=== PATIENT | female | born 1990 ===

== ENCOUNTER 2021-01-03 13:06 | Day surgery (SDC) | payer OTHER ==
[~2021-01-03] VITALS: Ht 157.5 cm; Wt 100.5 kg
[2021-01-03 13:44] VITALS: BP 128/76; PULSE 126; TEMP 98
[2021-01-03] MEDS ORDERED: MIRALAX PA17 GM/Dose PO (13:52)
[2021-01-03] MEDS ORDERED: PROAIR HFA0.09 MG/AC IH (13:53)
--- NOTE | 2021-01-03 13:54 | NUR ---
TO RM AT 1315- CALL LIGHT IN REACH AT BEDSIDE.
[2021-01-03 14:50] VITALS: BP 108/68; PULSE 106
--- NOTE | 2021-01-03 14:50 | NUR ---
Patient returns to [facility] per cart after having colonoscopy and transfers from cart to recliner with one person assist. IV fluids infusing and site is free of redness. Spouse in room and call light in reach. Allowed to rest.
[2021-01-03 15:00] VITALS: BP 118/56; PULSE 107
--- NOTE | 2021-01-03 15:00 | NUR ---
Sipping on Pepsi and eating muffin. Continues to deny abdominal pain or nausea.
[2021-01-03 15:15] VITALS: BP 106/65; PULSE 114
--- NOTE | 2021-01-03 15:15 | NUR ---
Resting and talks with spouse. Continues to deny abdominal pain or nausea.
[2021-01-03 15:30] VITALS: BP 108/67; PULSE 113
--- NOTE | 2021-01-03 15:30 | NUR ---
Tolerated muffin. Denies nausea or abdominal pain.
--- NOTE | 2021-01-03 15:35 | NUR ---
IV discontinued and site is free of redness or swelling. Dr. Jaffe here and talks with the patient. All questions answered. Instructed to follow up with PCP and get referral for dermatology. Patient and spouse state that they are being transferred to [place] and leaving Wednesday. State they will follow up there.
--- NOTE | 2021-01-03 15:40 | NUR ---
Dismissal instructions given and both verbalized understanding of this.
--- NOTE | 2021-01-03 15:43 | NUR ---
Patient dismissed to home driven by spouse and taken to the front door per wheelchair and assisted into vehicle with instructions in hand.
== END 2021-01-03 15:43 | disposition home or self-care (01) ==
LOC: SDCO 13:06
DX: K92.1 Melena (principal); K60.1 Chronic anal fissure; K62.89 Other specified diseases of anus and rectum; K62.4 Stenosis of anus and rectum; J45.909 Unspecified asthma, uncomplicated; E66.9 Obesity, unspecified; K59.09 Other constipation; E03.9 Hypothyroidism, unspecified; G70.00 Myasthenia gravis without (acute) exacerbation; Z79.899 Other long term (current) drug therapy; Z68.41 Body mass index [BMI] 40.0-44.9, adult; Z82.49 Family history of ischemic heart disease and other diseases of the circulatory system; Z80.9 Family history of malignant neoplasm, unspecified
CPT/HCPCS: J2704; J3010; J7030